=== PATIENT | male | born 1990 | race Caucasian/White ===

== ENCOUNTER 2020-02-25 13:29 | Emergency (ER) | payer OTHER ==
--- NOTE | 2020-02-25 14:55 | ER Document Report ---
ED Medical Screen (RME) - General Chief Complaint: Back Pain Stated Complaint: BACK PAIN Time Seen by Provider: 02/25/20 14:46 Mode of Arrival: Ambulatory Information source: Patient Notes: 30-year-old male presented to ED for complaint of pain to his lower back. He states he was injured in the [employer] and was medically discharged for the injury. He states that the [employer] told him of red flags he was supposed to call for. He states he had incontinent of stool on Tuesday. He states he had numbness to both legs intermittently since then. He states he [facility] and they told him to come to the emergency room and get an MRI completed as these were signs and symptoms that needed to be evaluated immediately. I did consult Dr. Ugalde if the MRI should be with or without contrast he stated it should be without contrast. Lumbar MRI without contrast has been ordered. I have greeted and performed a rapid initial assessment of this patient. A comprehensive ED assessment and evaluation of the patient, analysis of test results and completion of medical decision making process will be conducted by an additional ED providers. Physical Exam - Vital signs Vitals: Temp Pulse Resp BP Pulse Ox 98.6 F 68 18 126/62 H 98 02/25/20 13:47 02/25/20 13:47 02/25/20 13:47 02/25/20 13:47 02/25/20 13:47 Course - Vital Signs Vital signs: Temp Pulse Resp BP Pulse Ox 98.6 F 68 18 126/62 H 98 02/25/20 13:47 02/25/20 13:47 02/25/20 13:47 02/25/20 13:47 02/25/20 13:47
--- NOTE | 2020-02-25 16:20 | RADIOLOGY REPORT (SQ) ---
EXAM DESCRIPTION: SKULL 1-3 VIEWS IMAGES COMPLETED DATE/TIME: 02/25/2020 3:52 pm REASON FOR STUDY: METAL SCREEN FOR MRI COMPARISON: None. NUMBER OF VIEWS: Three Views. TECHNIQUE: PA, gray and lateral views of the skull were obtained LIMITATIONS: None. FINDINGS: SKULL: No radiopaque foreign body aside from dental amalgam. No sinus fluid levels. No f racture. OTHER: None. IMPRESSION: No intraorbital radiopaque foreign bodies. TECHNICAL DOCUMENTATION: JOB ID: [id number] 2010 [employer]- All Rights Reserved Reading location - IP/workstation name: [email or web address]
--- NOTE | 2020-02-25 16:44 | RADIOLOGY REPORT (SQ) ---
EXAM DESCRIPTION: MRI LUMBAR SPINE WITHOUT IMAGES COMPLETED DATE/TIME: 02/25/2020 4:28 pm REASON FOR STUDY: Low back pain, incontinence stool, numbness legs COMPARISON: None. TECHNIQUE: Sagittal and Axial imaging includes T1, T2, STIR and gradient echo sequences. Coronal T2/ HASTE imaging. LIMITATIONS: None. FINDINGS: VISUALIZED UPPER ABDOMEN: Limited evaluation. No acute or suspicious findings suggested. SEGMENTATION: No transitional anatomy. The lowest well-developed disc space is labeled L5-S1. ALIGNMENT: Anatomic. VERTEBRAE: Intact. BONE MARROW: Normal. No marrow replacement or reactive changes. DISC SIGNAL: Normal. No significant abnormal signal or loss of height. POSTERIOR ELEMENTS: Generally intact. No pars defect evident. HARDWARE: None in the spine. CORD AND CONUS: Normal in size and signal intensity. Conus at the appropriate level. SOFT TISSUES: No aortic aneurysm seen. No bulky retroperitoneal adenopathy or mass. No paraspinal mas s or fluid. L1-L2: No significant spinal stenosis or exit foraminal stenosis. L2-L3: No significant spinal stenosis or exit foraminal stenosis. L3-L4: No significant spinal stenosis or exit foraminal stenosis. L4-L5: No significant spinal stenosis or exit foraminal stenosis. L5-S1: No significant spinal stenosis or exit foraminal stenosis. LOWER THORACIC: Incompletely imaged. No stenosis seen. SACRUM: Visualized upper sacrum intact. OTHER: No other significant findings. IMPRESSION: No significant findings. TECHNICAL DOCUMENTATION: JOB ID: [id number] [id number] 2010 [employer] All Rights Reserved Reading location - IP/workstation name: [email or web address]
--- NOTE | 2020-02-25 18:07 | ER Document Report ---
ED Neck/Back Problem - General Chief Complaint: Back Pain Stated Complaint: BACK PAIN Time Seen by Provider: 02/25/20 14:46 Mode of Arrival: Ambulatory - [facility] Patient complains to provider of: Pain Onset: Other - Chronic, worsening today Where: Home Onset: Gradual Timing: Better Quality of pain: Sharp Recent injury: No Associated symptoms: Incontinence, Like prior neck/back pain, Numbness/tingling, Radiation to leg, Lower back pain. denies: Chest pain, Abdominal pain, Constipation, Radiation to arm, Radiation to chest, Unable to urinate Exacerbated by: Nothing Relieved by: Nothing Similar symptoms previously: Yes Notes: Patient is a 30-year-old male with a past medical history of a back injury after a fall 2 years ago who presents with right-sided back pain. Patient states that he has seen a chiropractor for 2 years for the pain. He is also on gabapentin and meloxicam but does not take it unless the pain is severe. Patient reports that yesterday he had a loss of stool, this also happened about 1 month ago. He states that the stool was possibly red in color. Then, he had worsening of the back pain. [facility] and was referred to the ED to rule out spinal injury. Patient states that he also developed bilateral tingling and ijmy-dar-yrwqkms sensation to his circumferential upper legs. He states that he does not have those symptoms currently. Patient states they have been intermittent, however. He has not had any urinary incontinence or urinary retention. No fevers or recent illnesses. No abdominal pain. He states that the back pain feels like his normal back pain but he was concerned about the loss of stool and the krjp-rhc-ocftrxm sensation. Past Medical History - General Information source: Patient - Social History Smoking Status: Never Smoker Family History: Reviewed & Not Pertinent Review of Systems - Review of Systems Notes: CONSTITUTIONAL: No fever, fatigue or weight loss. SKIN: No rash. HENT: No congestion, ear pain, or sore throat. EYES: No recent vision problems or eye pain. ENDOCRINE: No polyuria or polydipsia. CARDIOVASCULAR: No chest pain or edema. RESPIRATORY: No cough, shortness of breath, congestion, or wheezing. GASTROINTESTINAL: No abdominal pain, nausea, vomiting. Positive for episode of stool incontinence. GENITOURINARY: No dysuria. MUSCULOSKELETAL: Positive for nonradiating right low back pain. LYMPHATIC: No swollen glands. NEUROLOGIC: No seizures. No headache, focal weakness or sensory changes. HEMATOLOGIC: No unusual bruising or bleeding. PSYCHIATRIC: No depression or anxiety. Physical Exam - Vital signs Vitals: Temp Pulse Resp BP Pulse Ox 98.6 F 68 18 126/62 H 98 02/25/20 13:47 02/25/20 13:47 02/25/20 13:47 02/25/20 13:47 02/25/20 13:47 Interpretation: Normal - Notes Notes: VITAL SIGNS: Within normal limits. GENERAL: No acute distress, non-toxic appearance. HEAD: Normal with no signs of head trauma. EYES: EOMI, conjunctiva normal, no discharge. EARS: Hearing grossly intact. NOSE: Normal. NECK: Normal range of motion, no tenderness, supple, no lymphadenopathy, No adenopathy, no JVD. CHEST: Clear breath sounds bilaterally. No wheezes, rales, or rhonchi. CARDIAC: Regular rate and rhythm. S1 and S2, without murmurs, gallops, or rubs. VASCULAR: No Edema. ABDOMEN: Normal and soft with no tenderness, no masses or pulsatile masses. GENITOURINARY: Normal, No tenderness LYMPATHTIC: No lymphadenopathy noted. MUSCULOSKELETAL: Good range of motion of all major joints. Extremities without clubbing, cyanosis or edema. No rash on the area of back pain. Back pain does not radiate with palpation. Discomfort to palpation of lumbar spine and right- sided paraspinal musculature. NEUROLOGICAL: Alert and oriented x 3. No focal sensory or strength deficits. Speech normal. Follows commands appropriately. Range of motion of lower extremities intact. Strength is 5 out of 5 bilaterally. Sensation intact bilaterally. PSYCHIATRIC: Normal Affect, judgement and mood. SKIN: Normal appearance with no rashes or lesions. Course - Re-evaluation Re-evalutation: 02/25/20 18:09 Patient's lumbar spine MRI was normal with no signs of cauda equina or disc her niation. 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 He is denying any urinary incontinence. Patient states this does not feel like a kidney stone and he has had this pain off and on for 2 years. 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 I am unsure the etiology of his episode of bowel incontinence. He did not want a rectal exam to rule out GI bleed. He is denying any abdominal pain. I ordered blood work to evaluate hemoglobin and kidney function. We will also get a urinalysis. Patient was informed that he needs to follow-up with his PCP. They may need to refer him to a GI doctor. Patient is very agreeable to the plan. States that the tingling sensation has resolved and his back pain is baseline. Patient was given Toradol. He has pain medication at home. Patient was given strict return precautions. 02/26/20 02:40 - Vital Signs Vital signs: Temp Pulse Resp BP Pulse Ox 98.6 F 65 17 128/82 H 99 02/25/20 19:43 02/25/20 19:43 02/25/20 19:43 02/25/20 19:43 02/25/20 19:43 - Laboratory Result Diagrams: 02/25/20 18:16 02/25/20 18:16 Laboratory results interpreted by me: 02/25/20 02/25/20 18:16 18:16 Eos % (Auto) 7.5 H Absolute Eos (auto) 0.7 H ALT 130 H - Diagnostic Test Radiology reviewed: Reports reviewed Discharge - Discharge Clinical Impression: Paresthesia, Elevated LFTs Low back pain Qualifiers: Chronicity: chronic Back pain laterality: right Sciatica presence: without sciatica Qualified Code(s): M54.5 - Low back pain Condition: Stable Disposition: HOME, SELF-CARE Additional Instructions: [facility] with the [facility]. You may need to see a GI doctor. You had an elevation of your liver function test today. Please follow-up with the [facility] so they can recheck this. Take NSAIDs or Tylenol for the pain. Please return for any worsening symptoms.
[2020-02-25 18:22] LABS: APPEARANCE,URINE CLEAR; BILIRUBIN,URINE NEGATIVE (NEGATIVE); COLOR,URINE STRAW; GLUCOSE, URINE NEGATIVE (NEGATIVE); KETONES,URINE NEGATIVE (NEGATIVE); LEUKOCYTE ESTERASE,URINE NEGATIVE (NEGATIVE); NITRITE,URINE NEGATIVE (NEGATIVE); PROTEIN,URINE NEGATIVE (NEGATIVE); URINE SPECIFIC GRAVITY 1.012; UROBILINOGEN,URINE NEGATIVE mg/dL (<2.0)
[2020-02-25 18:32] LABS: ABSOLUTE BASOPHILS # (AUTO) 0.1 10^3/uL (0.0-0.2); ABSOLUTE EOSINOPHILS # (AUTO) 0.7 10^3/uL (0.0-0.6); ABSOLUTE LYMPHOCYTES (AUTO) 2.6 10^3/uL (0.5-4.7); ABSOLUTE NEUT (AUTO) 4.3 10^3/uL (1.7-8.2); BASOPHILS % (AUTO) 0.9 % (0-2); EOSINOPHILS % (AUTO) 7.5 % (0-6); HEMATOCRIT 40.1 % (37.9-51.0); HEMOGLOBIN 14.2 g/dL (13.5-17.0); LYMPHOCYTES % (AUTO) 30.3 % (13-45); MEAN CORPUSCULAR HEMOGLOBIN 31.9 pg (27.0-33.4); MEAN CORPUSCULAR HGB CONC 35.5 g/dL (32.0-36.0); MEAN CORPUSCULAR VOLUME 90 fl (80-97); MONOCYTES % (AUTO) 11.3 % (3-13); PLATELET COUNT 349 10^3/uL (150-450); RED BLOOD COUNT 4.46 10^6/uL (4.35-5.55); RED CELL DISTRIBUTION WIDTH 13.5 % (11.5-14.0); TOTAL CELLS COUNTED % (AUTO) 100 %; WHITE BLOOD COUNT 8.6 10^3/uL (4.0-10.5)
[2020-02-25 18:55] LABS: ALBUMIN 4.8 g/dL (3.5-5.0); ALKALINE PHOSPHATASE 59 U/L (38-126); ANION GAP 9 (5-19); ASPARTATE AMINO TRANSFERASE 56 U/L (17-59); BILIRUBIN,DIRECT 0.3 mg/dL (0.0-0.4); BILIRUBIN,TOTAL 0.4 mg/dL (0.2-1.3); BLOOD UREA NITROGEN 12 mg/dL (7-20); CALCIUM 9.6 mg/dL (8.4-10.2); CARBON DIOXIDE 30 mmol/L (22-30); CHLORIDE 101 mmol/L (98-107); GLUCOSE 94 mg/dL (75-110); POTASSIUM 4.9 mmol/L (3.6-5.0); TOTAL PROTEIN 7.7 g/dL (6.3-8.2)
[2020-02-25] MEDS ORDERED: KETOROLAC TROMETHAMINE 60 MG/2 ML SDV IM ONE (19:20)
[2020-02-25 19:45] VITALS: BP 128/82
== END 2020-02-25 19:43 | disposition home or self-care (01) ==
LOC: ER 13:29
DX: M54.5 Low back pain (principal); G89.29 Other chronic pain; R79.89 Other specified abnormal findings of blood chemistry; R20.2 Paresthesia of skin; R15.9 Full incontinence of feces
CPT/HCPCS: 99285; 96372; 36415; 85025; 80053; 81001; 72148; 70250; J1885